=== PATIENT | male | born 1975 | race Caucasian/White ===

== ENCOUNTER 2022-07-24 17:46 | Emergency (ER) | payer SELFPAY ==
[~2022-07-24] VITALS: Ht 175.3 cm; Wt 77.0 kg
[2022-07-24 17:50] VITALS: BP 168/97
[2022-07-24 19:08] LABS: BASOPHILS % 0.7 % (0.0-2.0); EOSINOPHILS % 0.1 % (0.0-5.0); HEMATOCRIT. 40.5 % (42.0-52.0); HEMOGLOBIN. 14.1 g/dL (14.0-18.0); LYMPHOCYTES % 36.3 % (20.0-50.0); MEAN CORPUSCULAR HEMOGLOBIN 30.9 pg (28.0-32.0); MEAN CORPUSCULAR VOLUME 88.6 fL (80.0-94.0); MEAN PLATELET VOLUME 7.3 fl (7.4-10.4); MONOCYTES % 4.6 % (2.0-8.0); NEUTROPHILS % 58.3 % (40.0-76.0); PLATELET 208 x1000/uL (130-400); RED BLOOD CELL COUNT 4.57 mill/uL (4.7-6.1); RED CELL DISTRIBUTION WIDTH 13.8 % (11.6-14.6)
[2022-07-24 19:31] LABS: CHLORIDE 95 mEq/L (98-107)
[2022-07-24 19:48] LABS: ETHANOL BLOOD 352 mg/dL
== END 2022-07-24 19:16 ==
LOC: ER 17:59
DX: F10.129 Alcohol abuse with intoxication, unspecified (principal); Y90.8 Blood alcohol level of 240 mg/100 ml or more; Y93.84 Activity, sleeping; Y92.810 Car as the place of occurrence of the external cause; E11.9 Type 2 diabetes mellitus without complications
CPT/HCPCS: 36415; 80053; 80320; 85025; 99283; G0480